=== PATIENT | female | born 1990 | race Caucasian/White ===

== ENCOUNTER → 2017-12-14 | Outpatient (CLI) | payer OTHER ==
[~2017-12-14] MED LIST: CLIN300 PO; HYDACE5 PO; IBUP800 PO; Verotin-Gr Cap1 EACH PO
[2017-12-14 14:04] LABS: Influenza A Negative (NEGATIVE); Influenza B Negative (NEGATIVE)
== END ==
LOC: LAB SHORT 13:16
PROVIDERS: Family Medicine
DX: R05 Cough (principal)
CPT/HCPCS: 87804

== ENCOUNTER → 2019-01-16 | Outpatient (CLI) | payer OTHER | END | disposition home or self-care (01) | LOC: LAB 08:53 → LAB SHORT 08:53 | DX: Z34.80 Encounter for supervision of other normal pregnancy, unspecified trimester (principal) | CPT/HCPCS: 87081; 87653 ==

== ENCOUNTER 2019-02-03 19:50 | Inpatient (IN) | payer OTHER ==
[~2019-02-03] VITALS: Ht 160 cm; Wt 0.4 kg
[2019-02-03] MEDS ORDERED: MAGCHL64ER (20:21)
[2019-02-03 21:04] LABS: BASOPHILS ABSOLUTE AUTO 0.03 K/mm3 (0.00-0.23); BASOPHILS PERCENT AUTO 0 % (0-2); EOSINOPHILS ABSOLUTE AUTO 0.09 K/mm3 (0.00-0.68); EOSINOPHILS PERCENT AUTO 1 % (0-6); Hematocrit 38.8 % (33.0-51.0); Hemoglobin 12.7 g/dL (11.5-16.0); IMMATURE GRAN ABSOLUTE AUTO 0.04 K/mm3 (0.00-0.10); IMMATURE GRAN PERCENT AUTO 0 % (0-1); LYMPHOCYTES ABSOLUTE AUTO 2.86 K/mm3 (0.84-5.20); LYMPHOCYTES PERCENT AUTO 26 % (21-46); MONOCYTES ABSOLUTE AUTO 0.76 K/mm3 (0.16-1.47); MONOCYTES PERCENT AUTO 7 % (4-13); Mean Corpuscular HGB 26.8 pg (26.0-34.0); Mean Corpuscular HGB Conc 32.7 g/dL (31.5-36.5); Mean Corpuscular Volume 82 fL (80-100); Mean Platelet Volume 10.9 fL (9.1-12.4); NEUTROPHILS ABSOLUTE AUTO 7.17 K/mm3 (1.96-9.15); NEUTROPHILS PERCENT AUTO 66 % (41-73); Platelet Count 219 K/mm3 (150-400); RDW Coefficient Variation 15.3 % (11.7-14.2); RDW Standard Deviation 45.8 fL (35.1-46.3); Red Blood Cell Count 4.74 M/mm3 (3.80-5.20); White Blood Cell Count 10.95 K/mm3 (4.00-11.30)
[2019-02-05 07:48] LABS: PCO2 Cord - Arterial 50.6 mmHg (40-50); PO2 Cord - Arterial 20.3 mmHg (16-20); pH Cord - Arterial 7.25 (7.28-7.35)
[2019-02-05 07:49] LABS: PCO2 Cord - Venous 39.6 mmHg (40-50); PO2 Cord - Venous 41.4 mmHg (28-32); pH Umbilical Cord - Venous 7.33 (7.26-7.35)
--- NOTE | 2019-02-05 08:37 | NUR ---
02/05/19 0837 Mary Marquez P 0729 VIABLE MALE INFANT DELIVERED, WEIGHT 3090 6# 13 OZ. HEAD 13.5 INCHES, CHEST 13.75 INCHES, LENGTH 19.5 INCHES. APGARS 9/9. CORD BLOOD GIVEN TO Benny DOCKERY CNA TO TAKE TO [employer]. CORD SEGMENT GIVEN TO Elias HARKINS, RT FOR CORD GASES. BILATERAL TUBES TAKEN TO 2ND FLOOR FOR PATHOLOGY
--- NOTE | 2019-02-05 15:20 | NUR ---
REPORT OFF TO OLLIE Bonilla RN
[2019-02-06 06:18] LABS: Hematocrit 38.2 % (33.0-51.0); Hemoglobin 12.2 g/dL (11.5-16.0); Mean Corpuscular HGB 26.3 pg (26.0-34.0); Mean Corpuscular HGB Conc 31.9 g/dL (31.5-36.5); Mean Corpuscular Volume 83 fL (80-100); Mean Platelet Volume 10.9 fL (9.1-12.4); Platelet Count 233 K/mm3 (150-400); RDW Coefficient Variation 15.6 % (11.7-14.2); RDW Standard Deviation 46.4 fL (35.1-46.3); Red Blood Cell Count 4.63 M/mm3 (3.80-5.20); White Blood Cell Count 10.27 K/mm3 (4.00-11.30)
--- NOTE | 2019-02-06 08:33 | NUR ---
Pt ambulated to nursery with nb. Denies other needs.
--- NOTE | 2019-02-06 14:10 | NUR ---
Pt reports relief from nausea, reports she also vomitted prior to taking nausea medication.
[2019-02-07] MEDS ORDERED: IBUP800 (23:43)
[2019-02-07] MEDS ORDERED: ONDA4ODT MM (23:44)
[2019-02-07] MEDS ORDERED: Percocet 5-3251 EACH PO (23:44)
--- NOTE | 2019-02-08 07:50 | NUR ---
pt is aware will be discharging out today, talked to pt about peg might be able to see them sooner, since they are here at the hospital, she reported that we are trying to get her out sooner, will talk to peg today, i dont have baby tsb results written down, not sure why follow up today with pt still her and if needs to come back in a couple days instead to see her incision. will let peg decide if she will see pt today also for ppfu for just baby for jaundice check and reschedule mom for later. plan to discharge pt out at 1130, pt is good with this plan, her hubby is free after 1000 to come and get her and the baby.
--- NOTE | 2019-02-08 11:25 | NUR ---
dc instructions gone over with pt, declines any questions, pt got tearful with mentioning baby blues and reports has been crying alot. went over depression with and when to call dr kay. pt is ready to go home. is taking a cart full of stuff out. pt has script in [facility] folder, all bands and paper work in [facility] folder. has ppfu for monday- at 11:00, pt wanted to pick her time.
--- NOTE | 2019-02-08 11:32 | NUR ---
dc home, pt choose to ambulate out.
== END 2019-02-08 11:30 | disposition home or self-care (01) | DRG 785 ==
LOC: BC 19:50
PROVIDERS: ADMIT Obstetrics & Gynecology
PROC: 3E033VJ Introduction of Other Hormone into Peripheral Vein, Percutaneous Approach (ICD-10-PCS; 2019-02-05)
PROC: 0U7C7ZZ Dilation of Cervix, Via Natural or Artificial Opening (ICD-10-PCS; 2019-02-05)
PROC: 10907ZC Drainage of Amniotic Fluid, Therapeutic from Products of Conception, Via Natural or Artificial Opening (ICD-10-PCS; 2019-02-05)
PROC: 6A550ZT Pheresis of Cord Blood Stem Cells, Single (ICD-10-PCS; 2019-02-05)
PROC: 10D00Z1 Extraction of Products of Conception, Low, Open Approach (ICD-10-PCS; principal; 2019-02-05 07:15)
PROC: 0UT70ZZ Resection of Bilateral Fallopian Tubes, Open Approach (ICD-10-PCS; 2019-02-05 07:15)
DX: O99.214 Obesity complicating childbirth (principal); O69.0XX0 Labor and delivery complicated by prolapse of cord, not applicable or unspecified; O21.9 Vomiting of pregnancy, unspecified; Z3A.39 39 weeks gestation of pregnancy; Z37.0 Single live birth
CPT/HCPCS: 36415; 51702; 82803; 85025; 85027; 88302; J0290; J0690; J1885; J2270; J2405; J2590; J2765; J3010; J7120

== ENCOUNTER → 2019-03-05 | Outpatient (CLI) | payer OTHER ==
[~2019-03-05] MED LIST changes: +IBUP800; +MAGCHL64ER; +ONDA4ODT MM; +Percocet 5-3251 EACH PO
== END | disposition home or self-care (01) ==
LOC: LAB 15:40 → LAB SHORT 15:40
DX: J02.9 Acute pharyngitis, unspecified (principal)
CPT/HCPCS: 87081

== ENCOUNTER → 2019-08-14 | Outpatient (CLI) | payer OTHER, SELFPAY | END | disposition home or self-care (01) | LOC: LAB 12:00 → LAB SHORT 12:00 | PROVIDERS: Obstetrics & Gynecology | DX: Z01.419 Encounter for gynecological examination (general) (routine) without abnormal findings (principal) | CPT/HCPCS: G0123 ==

== ENCOUNTER → 2021-02-17 | Outpatient (CLI) | payer OTHER, SELFPAY | LOC: LAB SHORT 14:54 | PROVIDERS: Obstetrics & Gynecology | DX: Z01.419 Encounter for gynecological examination (general) (routine) without abnormal findings (principal) | CPT/HCPCS: G0123 ==

== ENCOUNTER → 2021-02-24 | Outpatient (CLI) | payer OTHER, SELFPAY | END | disposition home or self-care (01) | LOC: PLD 08:38 → LAB SHORT 08:38 | DX: D48.5 Neoplasm of uncertain behavior of skin (principal) | CPT/HCPCS: 88305 ==

== ENCOUNTER 2021-06-02 11:34 | Emergency (ER) | payer OTHER ==
[~2021-06-02] VITALS: Ht 160 cm; Wt 108.9 kg
[2021-06-02] MEDS ORDERED: ONDA4ODT MM (11:59)
== END 2021-06-02 11:58 | disposition home or self-care (01) ==
LOC: ER 11:34
DX: O21.9 Vomiting of pregnancy, unspecified (principal); O98.511 Other viral diseases complicating pregnancy, first trimester; U07.1 COVID-19; R11.2 Nausea with vomiting, unspecified; Z3A.11 11 weeks gestation of pregnancy; Z79.899 Other long term (current) drug therapy
CPT/HCPCS: 99282

== ENCOUNTER 2021-06-04 14:09 | Emergency (ER) | payer OTHER ==
[~2021-06-04] VITALS: Ht 160 cm; Wt 106.6 kg
[2021-06-04 15:10] LABS: Calcium, Ionized (POC) 1.14 mmol/L (1.10-1.46); Chloride (POC) 100 mmol/L (98-108); Creatinine (POC) 0.7 mg/dL (0.6-1.0); Glucose (ISTAT POC) 91 mg/dL (70-99); Hemoglobin (POC) 12.9 g/dL (12.0-16.0); Potassium (POC) 3.3 mmol/L (3.5-5.5); Sodium (POC) 142 mmol/L (135-148); Total CO2 (POC) 30 mmol/L (21-32)
[2021-06-04] MEDS ORDERED: DEXT30SU PO (16:19)
[2021-06-04] MEDS ORDERED: ONDA4ODT MM (16:19)
[2021-06-04] MEDS ORDERED: PROM25 PO (16:25)
== END 2021-06-04 17:28 | disposition home or self-care (01) ==
LOC: ER 14:09
PROVIDERS: Physician Assistant
DX: U07.1 COVID-19 (principal)
CPT/HCPCS: 80047; 84145; 85014; 99283

== ENCOUNTER → 2022-06-15 | Outpatient (CLI) | payer OTHER | END | disposition home or self-care (01) | LOC: LAB 08:30 | DX: N77.1 Vaginitis, vulvitis and vulvovaginitis in diseases classified elsewhere (principal); N89.8 Other specified noninflammatory disorders of vagina ==

== ENCOUNTER → 2022-06-24 | Outpatient (CLI) | payer OTHER ==
[~2022-06-24] MED LIST changes: +DEXT30SU PO; +PROM25 PO
== END | disposition home or self-care (01) ==
LOC: LAB SHORT 19:00 → LAB 19:00
DX: R30.0 Dysuria (principal)
CPT/HCPCS: 87086

== ENCOUNTER → 2022-07-13 | Outpatient (CLI) | payer OTHER ==
[2022-07-13 15:02] LABS: Source, Urine Clean Catch
[2022-07-13 17:12] LABS: Appearance, Urine Clear (Clear); Bilirubin, Urine Neg (Neg); Blood, Urine Neg (Neg); Color, Urine Yellow (P-Yellow); Glucose Qualitative, Urine Neg (Neg); Ketones, Urine Neg (Neg); Leukocyte Esterase, Urine Neg (Neg); Nitrite, Urine Neg (Neg); Protein, Urine Neg (Neg); Specific Gravity, Urine 1.025 (1.003-1.022); Urobilinogen, Urine NORM (Normal)
== END | disposition home or self-care (01) ==
LOC: LAB SHORT 14:52 → LAB 14:52
PROVIDERS: Advanced Practice Midwife
DX: R82.90 Unspecified abnormal findings in urine (principal)
CPT/HCPCS: 81003

== ENCOUNTER → 2024-12-02 | Outpatient (CLI) | payer BC ==
[2024-12-06 08:34] LABS: HPV HIGH RISK BY TMA Not Detected; HPV SOURCE Cervical/Vag
== END | disposition home or self-care (01) ==
LOC: LAB 11:10 → LAB SHORT 11:10
PROVIDERS: Advanced Practice Midwife
DX: Z01.419 Encounter for gynecological examination (general) (routine) without abnormal findings (principal)
CPT/HCPCS: 87624; G0123

== ENCOUNTER → 2025-02-24 | Outpatient (CLI) | payer BC ==
[2025-02-24 10:20] LABS: BASOPHILS ABSOLUTE AUTO 0.04 K/mm3 (0.00-0.23); BASOPHILS PERCENT AUTO 1 % (0-2); EOSINOPHILS PERCENT AUTO 3 % (0-6); Hematocrit 39.6 % (33.0-51.0); Hemoglobin 13.2 g/dL (11.5-16.0); IMMATURE GRAN ABSOLUTE AUTO 0.01 K/mm3 (0.00-0.10); IMMATURE GRAN PERCENT AUTO 0 % (0-1); LYMPHOCYTES ABSOLUTE AUTO 1.57 K/mm3 (0.84-5.20); LYMPHOCYTES PERCENT AUTO 24 % (21-46); MONOCYTES PERCENT AUTO 8 % (4-13); Mean Corpuscular HGB 28.1 pg (26.0-34.0); Mean Corpuscular HGB Conc 33.3 g/dL (31.5-36.5); Mean Corpuscular Volume 84 fL (80-100); Mean Platelet Volume 9.6 fL (9.1-12.4); NEUTROPHILS ABSOLUTE AUTO 4.33 K/mm3 (1.96-9.15); NEUTROPHILS PERCENT AUTO 65 % (41-73); Platelet Count 284 K/mm3 (150-400); RDW Coefficient Variation 13.2 % (11.7-14.2); RDW Standard Deviation 40.5 fL (35.1-46.3); White Blood Cell Count 6.65 K/mm3 (4.00-11.30)
[2025-02-24 10:28] LABS: Bun/Creatinine Ratio 13.1 (12.0-20.0); Calcium, Blood 8.6 mg/dL (8.5-10.1); Creatinine, Blood 0.61 mg/dL (0.40-1.00); Potassium, Blood 3.7 mmol/L (3.5-5.5)
== END ==
LOC: LAB 10:17 → LAB SHORT 10:17
PROVIDERS: Physician Assistant Medical
DX: R10.9 Unspecified abdominal pain (principal)
CPT/HCPCS: 80048; 85025; 85379

== ENCOUNTER → 2025-05-19 | Outpatient (CLI) | payer BC ==
[2025-05-19 11:23] LABS: BASOPHILS ABSOLUTE AUTO 0.04 K/mm3 (0.00-0.23); BASOPHILS PERCENT AUTO 0 % (0-2); EOSINOPHILS ABSOLUTE AUTO 0.21 K/mm3 (0.00-0.68); EOSINOPHILS PERCENT AUTO 2 % (0-6); Hematocrit 35.4 % (33.0-51.0); Hemoglobin 12.1 g/dL (11.5-16.0); IMMATURE GRAN ABSOLUTE AUTO 0.09 K/mm3 (0.00-0.10); IMMATURE GRAN PERCENT AUTO 1 % (0-1); LYMPHOCYTES ABSOLUTE AUTO 1.07 K/mm3 (0.84-5.20); LYMPHOCYTES PERCENT AUTO 9 % (21-46); MONOCYTES ABSOLUTE AUTO 1.36 K/mm3 (0.16-1.47); MONOCYTES PERCENT AUTO 11 % (4-13); Mean Corpuscular HGB Conc 34.2 g/dL (31.5-36.5); Mean Corpuscular Volume 83 fL (80-100); NEUTROPHILS ABSOLUTE AUTO 9.65 K/mm3 (1.96-9.15); NEUTROPHILS PERCENT AUTO 78 % (41-73); NRBC ABSOLUTE 0.00 K/mm3 (0.00-0.02); NRBC Auto 0.0 /100 WBC (0.0-0.2); Platelet Count 232 K/mm3 (150-400); RDW Coefficient Variation 14.0 % (11.7-14.2); RDW Standard Deviation 41.3 fL (35.1-46.3)
[2025-05-19 11:31] LABS: Alanine Aminotransfer (ALT/SGP 21.0 U/L (12-78); Albumin, Blood 2.7 g/dL (3.4-5.0); Albumin/Globulin Ratio 0.7 (0.8-1.8); Anion Gap 14.0 mmol/L (3-11); Aspartate Aminotrans (AST/SGOT 23.0 U/L (12-37); Bilirubin, Total 0.6 mg/dL (0.1-1.0); Blood Urea Nitrogen 6.0 mg/dL (8-24); CO2, Blood 21.0 mmol/L (21-32); Calcium, Blood 8.3 mg/dL (8.5-10.1); Chloride, Blood 102.0 mmol/L (98-108); Creatinine, Blood 0.43 mg/dL (0.40-1.00); Globulin, Blood 3.9 g/dL (2.2-4.0); Glucose, Blood 96.0 mg/dL (70-99); Potassium, Blood 2.9 mmol/L (3.5-5.5); Sodium, Blood 134.0 mmol/L (136-145); Total Protein, Blood 6.6 g/dL (6.4-8.2)
== END ==
LOC: LAB 11:19 → LAB SHORT 11:19
PROVIDERS: Internal Medicine
DX: R11.10 Vomiting, unspecified (principal)
CPT/HCPCS: 80053; 85025

== ENCOUNTER → 2025-08-26 | Outpatient (CLI) | payer OTHER | LOC: LAB 15:42 → LAB SHORT 15:42 | DX: O09.90 Supervision of high risk pregnancy, unspecified, unspecified trimester (principal) | CPT/HCPCS: 87081; 87150 ==

== ENCOUNTER 2025-09-19 05:55 | Inpatient (IN) | payer OTHER ==
[2025-09-18 13:30] LABS: BASOPHILS ABSOLUTE AUTO 0.03 K/mm3 (0.00-0.23); BASOPHILS PERCENT AUTO 0 % (0-2); EOSINOPHILS ABSOLUTE AUTO 0.13 K/mm3 (0.00-0.68); EOSINOPHILS PERCENT AUTO 1 % (0-6); Hematocrit 35.0 % (33.0-51.0); Hemoglobin 11.7 g/dL (11.5-16.0); IMMATURE GRAN ABSOLUTE AUTO 0.11 K/mm3 (0.00-0.10); IMMATURE GRAN PERCENT AUTO 1 % (0-1); LYMPHOCYTES ABSOLUTE AUTO 1.92 K/mm3 (0.84-5.20); LYMPHOCYTES PERCENT AUTO 21 % (21-46); MONOCYTES ABSOLUTE AUTO 0.89 K/mm3 (0.16-1.47); MONOCYTES PERCENT AUTO 10 % (4-13); Mean Corpuscular HGB Conc 33.4 g/dL (31.5-36.5); Mean Corpuscular Volume 83 fL (80-100); NEUTROPHILS ABSOLUTE AUTO 6.20 K/mm3 (1.96-9.15); NEUTROPHILS PERCENT AUTO 67 % (41-73); NRBC ABSOLUTE 0.00 K/mm3 (0.00-0.02); NRBC Auto 0.0 /100 WBC (0.0-0.2); Platelet Count 240 K/mm3 (150-400); RDW Coefficient Variation 14.8 % (11.7-14.2); RDW Standard Deviation 43.3 fL (35.1-46.3)
[~2025-09-19] VITALS: Ht 160 cm; Wt 125.9 kg
[2025-09-19] VITALS (15 sets, daily range): BP systolic 92–134; BP diastolic 55–81
[2025-09-19] MEDS ORDERED: CeFAZolin Sodium 3,000 MG in NS 100 ML IV SCH (06:00)
[2025-09-19] MEDS ORDERED: Bupivacaine 0.5% HCl 5 MG/ML 30MLVIAL ONE (07:29)
[2025-09-19] MEDS ORDERED: Oxytocin 10 Unit / ML Vial ONE ×2 (07:55→08:05)
--- NOTE | 2025-09-19 07:59 | NUR ---
09/19/25 0759 Jeanine Collado S R C/S- BABY GIRL DELIVERED AT 0753. CORD BLOOD COLLECTED AND GIVEN TO LULA TREJO.
[2025-09-19] MEDS ORDERED: Ketorolac Tromethamine 30mg Vial ONE (08:02)
[2025-09-19] MEDS ORDERED: Magnesium Hydroxide Conc 10 ML UDC PO PRN (09:05)
[2025-09-19] MEDS ORDERED: Methylergonovine Maleate 0.2MG / ML 1ML Amp IM PRN (09:05)
[2025-09-19] MEDS ORDERED: Carboprost Tromethamine 250 MCG/ML 1ML Amp IM PRN (09:10)
[2025-09-19] MEDS ORDERED: FentaNYL Citrate 50 MCG/ML 2 ML Injection IV PRN (09:10)
[2025-09-19] MEDS ORDERED: Ondansetron HCl 2 MG / ML 2ML Vial IV PRN (09:15)
[2025-09-19] MEDS ORDERED: OXYTOCIN/RINGER'S LACTATE 500 ML IV SCH (09:15)
[2025-09-19] MEDS ORDERED: Ketorolac Tromethamine 30mg Vial IV SCH (10:00)
[2025-09-19] MEDS ORDERED: Ketorolac Tromethamine 30mg Vial IV PRN (10:23)
[2025-09-20] VITALS (7 sets, daily range): BP systolic 96–126; BP diastolic 53–75
[2025-09-20 06:55] LABS: BASOPHILS ABSOLUTE AUTO 0.04 K/mm3 (0.00-0.23); BASOPHILS PERCENT AUTO 0 % (0-2); EOSINOPHILS ABSOLUTE AUTO 0.12 K/mm3 (0.00-0.68); EOSINOPHILS PERCENT AUTO 1 % (0-6); Hematocrit 30.1 % (33.0-51.0); Hemoglobin 9.9 g/dL (11.5-16.0); IMMATURE GRAN ABSOLUTE AUTO 0.11 K/mm3 (0.00-0.10); IMMATURE GRAN PERCENT AUTO 1 % (0-1); LYMPHOCYTES ABSOLUTE AUTO 2.71 K/mm3 (0.84-5.20); LYMPHOCYTES PERCENT AUTO 21 % (21-46); MONOCYTES ABSOLUTE AUTO 1.57 K/mm3 (0.16-1.47); MONOCYTES PERCENT AUTO 12 % (4-13); Mean Corpuscular HGB Conc 32.9 g/dL (31.5-36.5); Mean Corpuscular Volume 85 fL (80-100); NEUTROPHILS ABSOLUTE AUTO 8.63 K/mm3 (1.96-9.15); NEUTROPHILS PERCENT AUTO 66 % (41-73); NRBC ABSOLUTE 0.00 K/mm3 (0.00-0.02); NRBC Auto 0.0 /100 WBC (0.0-0.2); Platelet Count 210 K/mm3 (150-400); RDW Coefficient Variation 15.2 % (11.7-14.2); RDW Standard Deviation 45.3 fL (35.1-46.3)
[2025-09-20] MEDS ORDERED: Prenatal Vit/FE Fumarate/FA 1 Tab PO SCH (09:00)
[2025-09-20] MEDS ORDERED: Polyethylene Glycol 3350 17 gm PO PRN (10:05)
[2025-09-21 03:22] VITALS: BP 119/75
[2025-09-21 07:31] VITALS: BP 124/66
== END 2025-09-21 09:45 | disposition home or self-care (01) | DRG 786 ==
LOC: BC 05:55
PROVIDERS: ADMIT Obstetrics & Gynecology
PROC: 3E03329 Introduction of Other Anti-infective into Peripheral Vein, Percutaneous Approach (ICD-10-PCS; 2025-09-19)
PROC: 10D00Z1 Extraction of Products of Conception, Low, Open Approach (ICD-10-PCS; principal; 2025-09-19 07:30)
PROC: 0UB10ZZ Excision of Left Ovary, Open Approach (ICD-10-PCS; 2025-09-19 07:30)
DX: O34.211 Maternal care for low transverse scar from previous cesarean delivery (principal); K65.1 Peritoneal abscess; O34.83 Maternal care for other abnormalities of pelvic organs, third trimester; N83.292 Other ovarian cyst, left side; Z3A.39 39 weeks gestation of pregnancy; Z37.0 Single live birth; N80.9 Endometriosis, unspecified; O99.62 Diseases of the digestive system complicating childbirth; O69.81X0 Labor and delivery complicated by cord around neck, without compression, not applicable or unspecified
CPT/HCPCS: 36415; 59414; 85025; 86850; 86900; 86901; 86923; 88305; A9270; J1885; J2590; J7120